=== PATIENT | male | born 1990 | race Caucasian/White ===

== ENCOUNTER 2020-08-23 07:32 | Emergency (ER) | payer SELFPAY ==
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
== END 2020-08-24 03:37 | disposition left against medical advice (07) ==
PROVIDERS: PCP Family Medicine
DX: Z53.21 Procedure and treatment not carried out due to patient leaving prior to being seen by health care provider (principal)
CPT/HCPCS: 99199

== ENCOUNTER 2020-08-23 08:12 | Emergency (ER) | payer SELFPAY ==
--- NOTE | 2020-08-23 08:31 | PC.NURSE ---
0825-Pt refusing to put on mask when asked. States does not need to be seen. Security asked again for pt to put on mask which he refused and stated he was leaving. Escorted out of ED by security.
== END 2020-08-23 08:20 | disposition left against medical advice (07) ==
DX: Z53.21 Procedure and treatment not carried out due to patient leaving prior to being seen by health care provider (principal)
CPT/HCPCS: 99199

== ENCOUNTER 2020-08-23 10:51 | Emergency (ER) | payer SELFPAY ==
--- NOTE | ~2020-08-23 | CT_ITS ---
EXAMINATION: CT cervical spine wo con DATE: 08/23/2020 12:02 INDICATION: Head injury TECHNIQUE: Computed tomography (CT) of the cervical spine was performed without intravenous contrast. The dose-length product (DLP) was 231.22 mGy-cm. Automated exposure control and iterative reconstruc tion technique were employed. COMPARISON: None FINDINGS: There is no fracture, dislocation, or subluxation. The vertebral body heights, alignment, a nd intervertebral disc spaces are normal. The paravertebral soft tissues are unremarkable. The odonto id is intact. IMPRESSION: 1. No acute osseous abnormality. Reviewed, dictated and finalized at location A.
--- NOTE | ~2020-08-23 | CT_ITS ---
EXAMINATION: CT brain wo con INDICATION: Headache COMPARISON: None TECHNIQUE: Standard unenhanced head CT. The dose-length product (DLP) was 605.33 mGy-cm. The mA was a djusted according to patient size. Iterative reconstruction technique was employed. FINDINGS: There is an occipital scalp hematoma. There is no intracranial hemorrhage, acute infarction , or abnormal mass lesion. The ventricles are normal. There is no abnormal mass effect or midline alicia ft. The goodman-white matter differentiation is normal. The basal cisterns are patent. The orbits are no rmal. The paranasal sinuses, mastoids and calvarium are normal. IMPRESSION: 1. Occipital scalp hematoma without acute intracranial abnormality. Reviewed, dictated and finalized at location A.
[2020-08-23 11:06] VITALS: BP 139/94; PULSE 139; RESP 18; TEMP 37.1; O2SAT 96
--- NOTE | 2020-08-23 11:12 | PC.NURSE ---
Pt refused IV for this RN. States his heart rate is normally high and that he is nervous.
--- NOTE | 2020-08-23 11:49 | ECG_ITS ---
Measurements Intervals [place] Rate: 117 P: 57 ID: [id number] QRS: -14 QRSD: 90 T: 55 QT: 316 QTc: 442 Interpretive Statements SINUS TACHYCARDIA NONSPECIFIC ST ELEVATION IN ANTERIOR LEADS NONSPECIFIC T-WAVE ABNORMALITY- INF/HIGH LAT LEADS BASELINE ARTIFACT- I, II, III, AVR, AVL, AVF, V1, V3-V6 ABNORMAL ECG Electronically Signed On 08-23-2020 15:21:32 CDT by Collins Sanford D.O.
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
--- NOTE | 2020-08-23 14:05 | PC.NURSE ---
Initial contact with patient. Dr. Douglas at bedside. Pt is refusing blood work or further testing as recommended per Dr. Douglas. Risks explained to patient and pt continues to refuse treatment. Pt signs AMA form, dresses self and amb to exit.
== END 2020-08-23 14:07 | disposition left against medical advice (07) ==
PROVIDERS: Emergency Provider Emergency Medicine; PCP Family Medicine
DX: S20.212A Contusion of left front wall of thorax, initial encounter (principal); S00.03XA Contusion of scalp, initial encounter; S60.512A Abrasion of left hand, initial encounter; X58.XXXA Exposure to other specified factors, initial encounter
CPT/HCPCS: 70450; 72125; 93005; 99284